=== PATIENT | male | born 1985 | race American Indian/Alaskan Native ===

== ENCOUNTER 2019-04-21 00:20 | Emergency (ER) | payer MEDICAID ==
[2019-04-21] MEDS ORDERED: SODIUM CHLORIDE 0.9% 1000 ML 1,000 ML IV ONE (01:21)
[2019-04-21] MEDS ORDERED: HYDROmorphone 1 MG/1 ML INJ IV ONE ×3 (01:21→03:34)
[2019-04-21 02:30] LABS: Hematocrit 27.6 % (35.5-45.6); Hemoglobin 8.8 gm/dl (11.8-15.2); Mean Corpuscular HGB Conc 32 % (32-34); Mean Corpuscular Volume 88 fl (84-94); Platelet Count 339 K/mm3 (140-440); Red Blood Count 3.16 M/mm3 (3.65-5.03)
[2019-04-21 02:38] LABS: Red Cell Distribution Width 20.1 % (13.2-15.2)
--- NOTE | 2019-04-21 02:40 | Emergency Department Report ---
HPI - General Chief Complaint: Sickle Cell Crisis Time Seen by Provider: 04/21/19 00:48 - HPI HPI: 33-year-old -Italian male presents to the emergency department with a complaint of generalized back pain that he believes is a sickle cell pain gwen is. The patient does have a history of sickle cell anemia. He has been to this facility one time in the past. It appears that prior to his last visit, and september, the patient was living in [place]. He does not have a primary care physician or a behavior specialist. He says he is moving to the [facility] and will be looking for some new physicians. The patient says that he has been taking his hydroxyurea and folate acid. He says that he has run out of any narcotic pain medication to take for his breakthrough pain. The [place] prescription monitoring service has been searched and the patient has multiple scheduled narcotic prescriptions that have been filled since September including 2 this month or so far. The patient appears to have seen doctors in [facility], among other areas. Patient denies any fever, chest pain, problems with bowel or bladder, numbness or paresthesias, or any neurological deficits. ED Past Medical Hx - Past Medical History Previous Medical History?: Yes Hx Sickle Cell Disease: Yes Additional medical history: Avascular Necrosis in hips, Port Right chest - Surgical History Past Surgical History?: Yes Additional Surgical History: Spleenectomy - Social History Smoking Status: Never Smoker Substance Use Type: None - Medications Home Medications: Home Medications Medication Instructions Recorded Confirmed Last Taken Type Oxycodone HCl/Acetaminophen 1 each PO Q6HR PRN #15 tablet 10/06/18 Unknown Rx [Percocet 10/325 mg] oxyCODONE /ACETAMINOPHEN [Percocet 1 tab PO Q8H PRN #6 tablet 04/21/19 Unknown Rx 5/325] ED Review of Systems ROS: Stated complaint: SICKLE CELL PAIN Other details as noted in HPI Comment: All other systems reviewed and negative Constitutional: denies: chills, fever Eyes: denies: vision change Respiratory: denies: shortness of breath Cardiovascular: denies: chest pain Gastrointestinal: denies: abdominal pain, vomiting Genitourinary: denies: dysuria, discharge Musculoskeletal: back pain. denies: joint swelling Skin: denies: rash, lesions Neurological: denies: headache, weakness Physical Exam - Physical Exam Vital Signs: Vital Signs 04/21/19 04/21/19 00:30 02:10 Temperature 98.4 F Pulse Rate 68 Respiratory 18 18 Rate Blood Pressure 103/47 O2 Sat by Pulse 98 Oximetry Physical Exam: GENERAL: The patient is well-developed well-nourished. HENT: Normocephalic. Atraumatic. Patient has moist mucous membranes. EYES: Extraocular motions are intact. NECK: Supple. Trachea is midline. CHEST/LUNGS: Clear to auscultation. There is no respiratory distress noted. HEART/CARDIOVASCULAR: Regular. There is no tachycardia. There is no murmur. ABDOMEN: Abdomen is soft, nontender. Patient has normal bowel sounds. There is no abdominal distention. SKIN: Skin is warm and dry. NEURO: The patient is awake, alert, and oriented. The patient is cooperative. The patient has no focal neurologic deficits. Normal speech. MUSCULOSKELETAL: There is no tenderness or deformity. There is no limitation range of motion. There is no evidence of acute injury. BACK: No midline thoracic or lumbar tenderness to palpation, step-off or deformity. There is reproducible I lateral paraspinal tenderness to palpation. ED Course Vital Signs 04/21/19 04/21/19 00:30 02:10 Temperature 98.4 F Pulse Rate 68 Respiratory 18 18 Rate Blood Pressure 103/47 O2 Sat by Pulse 98 Oximetry ED Medical Decision Making - Lab Data Result diagrams: 04/21/19 01:48 04/21/19 01:48 - Medical Decision Making This patient presents with a sickle cell pain crisis that he says is generalized back pain. There is no midline thoracic or lumbar tenderness to palpation, step-off or deformity. Patient has a hemoglobin of 8.8 which is increased from his last visit in September. He has a reticulocyte count of 5 that is decreased from his previous visit. Vital signs stable throughout his ED course including being afebrile. No leukocytosis. Patient has no complaints of any chest pain, fever, shortness of breath. He does not appear consistent with any chest crisis or infectious etiology. Patient was given some IV fluid resuscitation and pain medication and upon reevaluation he is feeling improved. Patient says that he i s moving to this area and has a referral for a behavior specialist. Patient was given a 2 day course of pain medication. He was instructed to return to the emergency Department with any worsening of symptoms or any acute distress. - Differential Diagnosis sickle cell pain crisis, muscle spasm, fibromyalgia Critical Care Time: No Critical care attestation.: If time is entered above; I have spent that time in minutes in the direct care of this critically ill patient, excluding procedure time. ED Disposition Clinical Impression: Sickle cell anemia with pain Disposition: DC- TO HOME OR SELFCARE Is pt being admited?: No Condition: Stable Instructions: Sickle Cell Crisis (ED), Back Pain (ED) Additional Instructions: Please follow up with a primary care physician and behavior specialist regarding your sickle cell pain. I've also given you a referral for a local orthopedist, Dr. Pineda, to follow up regarding your back pain. Return to the emergency Depa rtment with any worsening of your symptoms or any acute distress. You have been prescribed a medication that is sedating and therefore should not be taken prior to driving, working, and responsible for children and in no way should be mixed with alcohol of any quantity. Prescriptions: oxyCODONE /ACETAMINOPHEN [Percocet 5/325] 1 tab PO Q8H PRN #6 tablet PRN Reason: Pain Referrals: PRIMARY MD MICHELLE [Primary Care Provider] - 2-3 Days CARLOS GONZALES MD [Staff Physician] - 2-3 Days ISABEL PINEDA MD [Staff Physician] - 2-3 Days Time of Disposition: 03:37
[2019-04-21 02:52] LABS: BUN/Creatinine Ratio 8; Blood Urea Nitrogen 4 mg/dL (9-20); Calcium 8.5 mg/dL (8.4-10.2); Hemolysis Index 2
[2019-04-21 03:14] LABS: Basophils % (Manual) 0 % (0.0-1.8); Eosinophils % (Manual) 0 % (0.0-4.3); Total Cells Counted 100
[2019-04-21 03:15] LABS: Large Platelets 1+
[2019-04-21 03:16] LABS: Sickle Cells 1+; Target Cells 2+
[2019-04-21 03:17] LABS: Anisocytosis 1+; Platelet Estimate Consistent w Auto; Tear Drop Cells Few
[2019-04-21 03:18] LABS: Howell-Jolly Bodies Few; Hypochromasia 1+
[2019-04-21 06:49] VITALS: BP 106/54
== END 2019-04-21 08:11 | disposition home or self-care (01) ==
LOC: ED 00:20
DX: D57.80 Other sickle-cell disorders without crisis (principal); Z90.89 Acquired absence of other organs; Z79.899 Other long term (current) drug therapy
CPT/HCPCS: 36415; 80048; 85007; 85025; 85045; 96374; 96376; 99284; J1170; J7030

== ENCOUNTER 2019-04-22 00:22 | Emergency (ER) | payer MEDICAID ==
[2019-04-22] MEDS ORDERED: HYDROmorphone 1 MG/1 ML INJ IV ONE ×4 (01:57→05:44)
[2019-04-22] MEDS ORDERED: SODIUM CHLORIDE 0.9% 1000 ML 1,000 ML IV ONE (01:58)
--- NOTE | 2019-04-22 02:04 | Emergency Department Report ---
HPI - General Chief Complaint: Sickle Cell Crisis Time Seen by Provider: 04/22/19 01:46 - HPI HPI: 33-year-old -Swiss male presents to the emergency department with a complaint of a 3 day history of back pain that he says is due to his sickle cell anemia as a pain crisis. He denies any fever, chest pain, shortness of breath, nausea, vomiting. He denies any problems with bowel or bladder, numbness or paresthesias or any neurological deficits. The patient is well-known to me as I saw him last night for the same symptoms. At that time he had some anemia with a hemoglobin of 8.8, and a reticulocyte count of about 5, but both of these valu es were improved from his previous visit in September. He does not have a local senior firmware engineer. He did not appear to fill the pain medication prescription that was given to him yesterday. However, and checking the [employer] prescription monitoring system, the patient does have multiple scheduled narcotic pain medication prescriptions are filled from multiple different doctors and at multiple different pharmacies. ED Past Medical Hx - Past Medical History Previous Medical History?: Yes Hx Sickle Cell Disease: Yes Additional medical history: Avascular Necrosis in hips, Port Right chest - Surgical History Past Surgical History?: Yes Additional Surgical History: Spleenectomy - Social History Smoking Status: Never Smoker Substance Use Type: None - Medications Home Medications: Home Medications Medication Instructions Recorded Confirmed Last Taken Type Oxycodone HCl/Acetaminophen 1 each PO Q6HR PRN #15 tablet 10/06/18 Unknown Rx [Percocet 10/325 mg] oxyCODONE /ACETAMINOPHEN [Percocet 1 tab PO Q8H PRN #6 tablet 04/21/19 Unknown Rx 5/325] ED Review of Systems ROS: Stated complaint: SICKLE CELL CRISIS Other details as noted in HPI Comment: All other systems reviewed and negative Constitutional: denies: chills, fever Eyes: denies: eye pain, vision change ENT: denies: ear pain, throat pain Respiratory: denies: cough, shortness of breath Cardiovascular: denies: chest pain, palpitations Gastrointestinal: denies: abdominal pain, vomiting Genitourinary: denies: dysuria, discharge Musculoskeletal: back pain. denies: arthralgia Skin: denies: rash, lesions Neurological: denies: headache, weakness Physical Exam - Physical Exam Vital Signs: Vital Signs 04/22/19 00:36 Temperature 98.9 F Pulse Rate 70 Respiratory 18 Rate Blood Pressure 105/47 O2 Sat by Pulse 99 Oximetry Physical Exam: GENERAL: The patient is well-developed well-nourished. HENT: Normocephalic. Atraumatic. Patient has moist mucous membranes. EYES: Extraocular motions are intact. NECK: Supple. Trachea is midline. CHEST/LUNGS: Clear to auscultation. There is no respiratory distress noted. HEART/CARDIOVASCULAR: Regular. There is no tachycardia. There is no murmur. ABDOMEN: Abdomen is soft, nontender. Patient has normal bowel sounds. There is no abdominal distention. SKIN: Skin is warm and dry. NEURO: The patient is awake, alert, and oriented. The patient is cooperative. The patient has no focal neurologic deficits. Normal speech. MUSCULOSKELETAL: There is no tenderness or deformity. There is no limitation range of motion. There is no evidence of acute injury. BACK: No midline thoracic or lumbar tenderness to palpation, step-off or deformity. There is some reproducible paraspinal tenderness to palpation. ED Course Vital Signs 04/22/19 00:36 Temperature 98.9 F Pulse Rate 70 Respiratory 18 Rate Blood Pressure 105/47 O2 Sat by Pulse 99 Oximetry ED Medical Decision Making - Lab Data Result diagrams: 04/22/19 02:00 04/22/19 02:00 - Medical Decision Making This patient presents for the second day in a row regarding some back pain secondary to a sickle cell pain crisis. He does not have any problems with bowel or bladder, numbness or paresthesias or any neurological deficits. He has been seen ambulatory and appears stable. He appears low suspicion for any of the emergent back conditions such as cauda equina, epidural abscess or cord compression syndrome. The patient also denies any chest pain, shortness of breath or fever and he appears low suspicion for a sickle cell chest crisis. The patient's hemoglobin is improved from yesterday and is currently greater than 9. Also, his reticulocyte count has decreased and is less than 5. Patient was given some IV fluid resuscitation, a dose of Toradol, and multiple doses of IV pain medication. He was reevaluated multiple times over multiple hours and is feeling improved. Vital signs have been stable throughout his ED course. The patient appears safe for discharge home, however he does not have anyone available to come and pick him up and take responsibility for him. Therefore the patient will remain in the emergency department for a few hours until the sedating effects of the pain medication has worn off. He has been given multiple referrals for local hematologists. He will return to the emergency Department with any worsening of his symptoms or any acute distress. Critical Care Time: No Critical care attestation.: If time is entered above; I have spent that time in minutes in the direct care of this critically ill patient, excluding procedure time. ED Disposition Clinical Impression: Sickle cell anemia with pain Disposition: DC- TO HOME OR SELFCARE Is pt being admited?: No Condition: Stable Instructions: Sickle Cell Crisis (ED) Additional Instructions: Please try and follow up with a senior firmware engineer in the next few days. Return to the emergency Department with any worsening of your symptoms or any acute distress. Referrals: PRIMARY MD MICHELLE [Primary Care Provider] - 3-5 Days GERI BOWLING MD [Staff Physician] - 3-5 Days ILAN PENNY MD [Staff Physician] - 3-5 Days Time of Disposition: 05:45
[2019-04-22 02:20] LABS: Hematocrit 28.8 % (35.5-45.6); Hemoglobin 9.3 gm/dl (11.8-15.2); Mean Corpuscular HGB Conc 32 % (32-34); Mean Corpuscular Volume 87 fl (84-94); Platelet Count 381 K/mm3 (140-440); Red Blood Count 3.33 M/mm3 (3.65-5.03)
[2019-04-22 02:21] LABS: Red Cell Distribution Width 20.6 % (13.2-15.2)
[2019-04-22 02:42] LABS: BUN/Creatinine Ratio 8; Blood Urea Nitrogen 4 mg/dL (9-20); Calcium 9.2 mg/dL (8.4-10.2); Hemolysis Index 0
[2019-04-22 03:27] LABS: Anisocytosis 2+; Nucleated Red Blood Cells 17.5 % (0.0-0.9); Total Cells Counted 100
[2019-04-22 03:28] LABS: Howell-Jolly Bodies 1+; Hypochromasia 1+; Sickle Cells 2+; Target Cells 2+; Tear Drop Cells 1+
[2019-04-22] MEDS ORDERED: HYDROmorphone 2 MG/1 ML INJ IV ONE (04:24)
[2019-04-22] MEDS ORDERED: KETOROLAC 30 MG/1 ML INJ IV ONE (04:25)
[2019-04-22 05:32] LABS: Bacteria,Urine 1+ /HPF (Negative); Bilirubin,Urine NEG (Negative); Blood,Urine NEG (Negative); Color,Urine Yellow (Yellow); Mucus,Urine FEW /HPF; Protein,Urine <15 mg/dL mg/dL (Negative); Urobilinogen,Urine < 2.0 mg/dL (<2.0)
[2019-04-22 06:14] VITALS: BP 113/65
== END 2019-04-22 06:25 | disposition home or self-care (01) ==
LOC: ED 00:22
DX: D57.1 Sickle-cell disease without crisis (principal); M54.9 Dorsalgia, unspecified; Z98.890 Other specified postprocedural states; Z79.899 Other long term (current) drug therapy
CPT/HCPCS: 36415; 80048; 81001; 85007; 85025; 85045; 96374; 96375; 96376; 99284; J1170; J1885; J7030

== ENCOUNTER 2019-05-07 08:16 | Emergency (ER) | payer MEDICAID ==
[2019-05-07] MEDS ORDERED: SODIUM CHLORIDE 0.9% 1000 ML 1,000 ML IV ONE (13:15)
[2019-05-07] MEDS ORDERED: ONDANSETRON 4 MG/2 ML INJ IV ONE (13:15)
[2019-05-07] MEDS ORDERED: MORPHINE 4 MG/1 ML INJ IV ONE ×2 (13:15→16:18)
[2019-05-07 14:31] LABS: Hematocrit 28.5 % (35.5-45.6); Mean Corpuscular HGB Conc 32 % (32-34); Mean Corpuscular Volume 86 fl (84-94); Platelet Count 423 K/mm3 (140-440); Red Blood Count 3.31 M/mm3 (3.65-5.03)
[2019-05-07 14:38] LABS: INR 1.16 (0.87-1.13)
[2019-05-07 14:52] LABS: Alanine Aminotransferase 32 units/L (7-56); Albumin 4.4 g/dL (3.9-5); BUN/Creatinine Ratio 15; Blood Urea Nitrogen 6 mg/dL (9-20); Calcium 9.3 mg/dL (8.4-10.2); Hemolysis Index 10
[2019-05-07 15:21] LABS: Partial Thromboplastin Time 70.6 Sec. (24.2-36.6)
--- NOTE | 2019-05-07 16:44 | Emergency Department Report ---
ED General Adult HPI - General Chief complaint: Sickle Cell Crisis Stated complaint: SICKLE CELL CRISIS Time Seen by Provider: 05/07/19 12:27 Source: patient Mode of arrival: Ambulatory Limitations: No Limitations - History of Present Illness Initial comments: The patient presents to the emergency department for chief complaint sickle cell crisis. Patient states he is having diffuse back pain which is consistent with prior sickle cell crises. Patient states that he's taken oxycodone and MS Contin at home without relief. Patient denies chest pain, shortness breath, or abdominal pain. Patient states that his crises a secondary to traveling between the extremes of climate in the last couple of days. -: Sudden Location: back Radiation: non-radiation Severity scale (0 -10): 9 Quality: sharp Consistency: constant Improves with: none Worsens with: none Associated Symptoms: denies other symptoms Treatments Prior to Arrival: none - Related Data Previous Rx's Medication Instructions Recorded Last Taken Type Oxycodone HCl/Acetaminophen 1 each PO Q6HR PRN #15 tablet 10/06/18 Unknown Rx [Percocet 10/325 mg] oxyCODONE /ACETAMINOPHEN [Percocet 1 tab PO Q8H PRN #6 tablet 04/21/19 Unknown Rx 5/325] Oxycodone HCl/Acetaminophen 1 each PO Q6HR PRN #12 tablet 05/07/19 Unknown Rx [Percocet 10/325 mg] Allergies Allergy/AdvReac Type Severity Reaction Status Date / Time No Known Allergies Allergy Unverified 10/06/18 09:34 ED Review of Systems ROS: Stated complaint: SICKLE CELL CRISIS Other details as noted in HPI Comment: All other systems reviewed and negative Constitutional: denies: chills, fever Eyes: denies: eye pain, eye discharge, vision change ENT: denies: ear pain, throat pain Respiratory: denies: cough, shortness of breath, wheezing Cardiovascular: denies: chest pain, palpitations Endocrine: no symptoms reported Gastrointestinal: denies: abdominal pain, nausea, diarrhea Genitourinary: denies: urgency, dysuria Musculoskeletal: denies: back pain, joint swelling, arthralgia Skin: denies: rash, lesions Neurological: denies: headache, weakness, paresthesias Psychiatric: denies: anxiety, depression Hematological/Lymphatic: denies: easy bleeding, easy bruising ED Past Medical Hx - Past Medical History Previous Medical History?: Yes Hx Sickle Cell Disease: Yes Hx HIV: Yes Additional medical history: Avascular Necrosis in hips, Port Right chest - Surgical History Past Surgical History?: Yes Additional Surgical History: Spleenectomy - Social History Smoking Status: Never Smoker Substance Use Type: None - Medications Home Medications: Home Medications Medication Instructions Recorded Confirmed Last Taken Type Oxycodone HCl/Acetaminophen 1 each PO Q6HR PRN #15 tablet 10/06/18 Unknown Rx [Percocet 10/325 mg] oxyCODONE /ACETAMINOPHEN [Percocet 1 tab PO Q8H PRN #6 tablet 04/21/19 Unknown Rx 5/325] Oxycodone HCl/Acetaminophen 1 each PO Q6HR PRN #12 tablet 05/07/19 Unknown Rx [Percocet 10/325 mg] ED Physical Exam - General Limitations: No Limitations General appearance: alert, in no apparent distress - Head Head exam: Present: atraumatic, normocephalic - Eye Eye exam: Present: normal appearance, PERRL, EOMI - ENT ENT exam: Present: mucous membranes dry - Neck Neck exam: Present: normal inspection - Respiratory Respiratory exam: Present: normal lung sounds bilaterally. Absent: respiratory distress - Cardiovascular Cardiovascular Exam: Present: regular rate, normal rhythm. Absent: systolic murmur, diastolic murmur, rubs, gallop - GI/Abdominal GI/Abdominal exam: Present: soft, normal bowel sounds. Absent: distended, tenderness - Rectal Rectal exam: Present: deferred - Extremities Exam Extremities exam: Present: normal inspection - Back Exam Back exam: Present: normal inspection - Neurological Exam Neurological exam: Present: alert, oriented X3, CN II-XII intact. Absent: motor sensory deficit - Psychiatric Psychiatric exam: Present: normal affect, normal mood - Skin Skin exam: Present: warm, dry, intact, normal color. Absent: rash ED Course Vital Signs 05/07/19 05/07/19 05/07/19 08:42 14:16 14:30 Temperature 98.4 F Pulse Rate 86 Respiratory 16 Rate Blood Pressure 116/65 Blood Pressure 106/88 [Right] O2 Sat by Pulse 96 96 98 Oximetry 05/07/19 16:50 Temperature Pulse Rate Respiratory 16 Rate Blood Pressure Blood Pressure [Right] O2 Sat by Pulse Oximetry ED Medical Decision Making - Lab Data Result diagrams: 05/07/19 14:05 05/07/19 14:05 Lab Results 05/07/19 05/07/19 05/07/19 Range/Units 14:05 14:05 14:05 WBC 8.4 (4.5-11.0) K/mm3 RBC 3.31 L (3.65-5.03) M/mm3 Hgb 9.0 L (11.8-15.2) gm/dl Hct 28.5 L (35.5-45.6) % MCV 86 (84-94) fl MCH 27 L (28-32) pg MCHC 32 (32-34) % RDW 21.0 H (13.2-15.2) % Plt Count 423 (140-440) K/mm3 Percent Retic 4.19 H (0.78-2.58) % PT 14.7 (12.2-14.9) Sec. INR 1.16 H (0.87-1.13) APTT 70.6 H* (24.2-36.6) Sec. Sodium 142 (137-145) mmol/L Potassium 3.8 (3.6-5.0) mmol/L Chloride 104.5 (98-107) mmol/L Carbon Dioxide 23 (22-30) mmol/L Anion Gap 18 mmol/L BUN 6 L (9-20) mg/dL Creatinine 0.4 L (0.8-1.5) mg/dL Estimated GFR > 60 ml/min BUN/Creatinine Ratio 15 % Glucose 98 (75-100) mg/dL Calcium 9.3 (8.4-10.2) mg/dL Total Bilirubin 1.10 (0.1-1.2) mg/dL AST 31 (5-40) units/L ALT 32 (7-56) units/L Alkaline Phosphatase 96 (35-129) units/L Lactate Dehydrogenase 298 H (91-180) units/L Total Protein 7.3 (6.3-8.2) g/dL Albumin 4.4 (3.9-5) g/dL Albumin/Globulin Ratio 1.5 % - Radiology Data Radiology results: image reviewed - Medical Decision Making Patient initially asked for 2 mg of Dilaudid at a time stating that that is his pain protocol will come in to the ED. I discussed with patient I do not for cough will given him 2 mg of Dilaudid at a time Discussed results with patient Critical care attestation.: If time is entered above; I have spent that time in minutes in the direct care of this critically ill patient, excluding procedure time. ED Disposition Clinical Impression: Sickle cell crisis Disposition: DC-01 TO HOME OR SELFCARE Is pt being admited?: No Does the pt Need Aspirin: No Condition: Stable Instructions: Sickle Cell Crisis (ED) Additional Instructions: return if worse Prescriptions: Oxycodone HCl/Acetaminophen [Percocet 10/325 mg] 1 each PO Q6HR PRN #12 tablet PRN Reason: Pain Referrals: PRIMARY CARE,MD [Primary Care Provider] - 3-5 Days [facility] [Provider Group] - 3-5 Days [facility] [Provider Group] - 3-5 Days Time of Disposition: 17:20
[2019-05-07] MEDS ORDERED: HYDROmorphone 1 MG/1 ML INJ IV ONE (17:05)
--- NOTE | 2019-05-07 17:25 | XRay Report ---
. CHEST 1 VIEW INDICATION: sickle cell crisis. COMPARISON: None FINDINGS: Support devices: Right-sided Port-A-Cath with tip at the cavoatrial junction. Heart: Within normal limits. Lungs/Pleura: Clear lungs. Additional findings: Mottled bones with changes of osteonecrosis. IMPRESSION: 1. Findings consistent with history of sickle cell disease with no acute pulmonary abnormality. Signer Name: Abelardo Krause MD Signed: 05/07/2019 5:21 PM Workstation Name: [id number]
[2019-05-07 18:02] VITALS: BP 118/73
[2019-05-07 18:08] LABS: Bilirubin,Urine NEG (Negative); Blood,Urine NEG (Negative); Color,Urine Yellow (Yellow); Protein,Urine <15 mg/dL mg/dL (Negative); WBC,Urine < 1.0 /HPF (0.0-6.0)
[2019-05-07 18:16] LABS: Amphetamine Screen,Urine PRESUMPTIVE NEGATIVE; Benzodiazepines Screen,Urine PRESUMPTIVE NEGATIVE; Cocaine Screen,Urine PRESUMPTIVE NEGATIVE; Methadone Screen,Urine PRESUMPTIVE NEGATIVE
[2019-05-07 18:46] LABS: Cannabinoid Screen,Urine PRESUMPTIVE POSITIVE; Opiate Screen,Urine PRESUMPTIVE POSITIVE
[2019-05-07 19:10] LABS: Basophils % (Manual) 0 % (0.0-1.8); Eosinophils % (Manual) 0 % (0.0-4.3); Total Cells Counted 100
[2019-05-07 19:11] LABS: Sickle Cells 1+
[2019-05-07 19:12] LABS: Anisocytosis 1+; Howell-Jolly Bodies Few; Pappenheimer Bodies Few; Platelet Estimate Consistent w Auto; Target Cells 2+
== END 2019-05-07 18:37 | disposition home or self-care (01) ==
LOC: ED 08:16
DX: D57.00 Hb-SS disease with crisis, unspecified (principal); Z90.81 Acquired absence of spleen; Z98.890 Other specified postprocedural states; Z79.899 Other long term (current) drug therapy
CPT/HCPCS: 36415; 71045; 80053; 80307; 81001; 83615; 85007; 85025; 85045; 85610; 85730; 96374; 96375; 96376; 99285; J1170; J1642; J2270; J2405; J7030